=== PATIENT | female | born 1950 | race Caucasian/White ===

== ENCOUNTER → 2020-10-26 | Outpatient (CLI) | payer MEDICARE ==
--- NOTE | 2020-10-26 08:31 | US ---
EXAMINATION TYPE: US abdomen complete DATE OF EXAM: 10/26/2020 COMPARISON: NONE CLINICAL HISTORY: R91.1 lung nodule,R93.[address] SCAN. Patient states having back spasms. No p rior sx. EXAM MEASUREMENTS: Liver Length: 16.2 cm Gallbladder Wall: 0.2 cm CBD: 0.3 cm Spleen: 9.2 cm Right Kidney: 11.0 x 4.9 x 3.6 cm Left Kidney: 10.1 x 4.9 x 4.7 cm Limited visualization due to overlying bowel gas Pancreas: Tail obscured by overlying bowel gas Liver: wnl Gallbladder: wnl Evidence for sonographic Stein's sign: neg CBD: wnl Spleen: wnl Right Kidney: Inferior pole obscured by bowel gas Left Kidney: No hydronephrosis or masses seen Upper IVC: wnl Abd Aorta: No AAA visualized The liver is homogenous. The intrahepatic portion of the IVC and proximal abdominal aorta are within normal limits. There is no evidence of cholelithiasis. Common bile duct is unremarkable. The visu alized portions of the pancreas are homogenous. The spleen is unremarkable. Kidneys are symmetric a nd free of hydronephrosis. No renal lesions are seen. IMPRESSION: No distinct abnormality seen.
--- NOTE | 2020-10-26 09:16 | CT ---
EXAMINATION TYPE: CT chest wo con DATE OF EXAM: 10/26/2020 COMPARISON: NONE at this institution. HISTORY: Abnormal CT, back pain, lung nodule. CT DLP: 252.7 mGycm. Automated Exposure Control for Dose Reduction was Utilized. TECHNIQUE: CT scan of the thorax is performed without IV contrast. FINDINGS: LUNGS: There is 6 mm calcified nodule or granuloma right upper lobe axial image 15. There is 4 x 4 mi llimeter right middle lobe noncalcified nodule seen best on coronal image 27 corresponding to axial i mage 33. Mild bibasilar linear scarring and/or atelectasis. There is a 6 x 4 mm superior left lower l obe noncalcified nodule axial image 21. No pleural effusion or pneumothorax seen bilaterally. No susp icious focal consolidation. MEDIASTINUM: Lack of IV contrast is noted to limit evaluation for mediastinal and especially hilar ad enopathy. There are no definitive greater than 1 cm noncalcified hilar or mediastinal lymph nodes. Pr ominent subcentimeter calcified right suprahilar lymph nodes coronal image 49. No cardiomegaly or p ericardial effusion is seen. OTHER: [id number] multilevel disc space narrowing and vacuum disc phenomenon. Underlying S-shap ed scoliosis. IMPRESSION: Evidence of old granulomatous disease. Small bilateral nodules as detailed above. Need fo r further follow-up should be based on correlation with old outside CT images.
== END | disposition home or self-care (01) ==
LOC: RADUSWWP 07:46
PROVIDERS: ATTEND Family Medicine
DX: R91.8 Other nonspecific abnormal finding of lung field (principal); D71 Functional disorders of polymorphonuclear neutrophils; R93.89 Abnormal findings on diagnostic imaging of other specified body structures
CPT/HCPCS: 71250; 76700

== ENCOUNTER → 2021-05-06 | Outpatient (CLI) | payer MEDICARE, OTHER ==
--- NOTE | 2021-05-06 09:16 | CT ---
EXAMINATION TYPE: CT chest wo con DATE OF EXAM: 05/06/2021 COMPARISON: Prior CT October 26, 2020 HISTORY: Previous abnormal CT CT DLP: 485 mGycm. Automated Exposure Control for Dose Reduction was Utilized. TECHNIQUE: CT scan of the thorax is performed without IV contrast. FINDINGS: LUNGS: There is stable 6 mm calcified nodule or granuloma right upper lobe axial image 13. There is s table 4 x 3 millimeter right middle lobe noncalcified nodule seen best on coronal image 31 correspond ing to axial image 32. Mild bibasilar linear scarring and/or atelectasis is redemonstrated. There is a stable 5 x 4 mm superior left lower lobe noncalcified nodule axial image 18. No new or enlarging gr eater than 4 mm noncalcified nodules. No pleural effusion or pneumothorax seen bilaterally. No suspic ious focal consolidation. MEDIASTINUM: Lack of IV contrast is noted to limit evaluation for mediastinal and especially hilar ad enopathy. There are no definitive greater than 1 cm mediastinal lymph nodes. Prominent subcentimeter calcified right suprahilar and pericarinal lymph nodes redemonstrated. No cardiomegaly or significa nt pericardial effusion is seen. OTHER: Cnar-[id number]-pbuyyxgx multilevel disc space narrowing and vacuum disc phenomenon. Underlying S-shap ed scoliosis redemonstrated. IMPRESSION: Evidence of old granulomatous disease. Small bilateral nodules as detailed above. No new or enlarging noncalcified nodules.
== END | disposition home or self-care (01) ==
LOC: RADCTMAIN 08:34
PROVIDERS: ATTEND Family Medicine
DX: R91.8 Other nonspecific abnormal finding of lung field (principal)
CPT/HCPCS: 71250